=== PATIENT | female | born 1990 | race Asian ===

== ENCOUNTER 2019-03-07 16:44 | Emergency (ER) | payer BC ==
[2019-03-07] MEDS: LIDOCAINE 1% (MDV) 20 ML INJ SC (17:23)
== END 2019-03-07 18:54 | disposition home or self-care (01) ==
LOC: FTE 16:44
DX: O34.83 Maternal care for other abnormalities of pelvic organs, third trimester (principal); N75.0 Cyst of Bartholin's gland; Z3A.31 31 weeks gestation of pregnancy
CPT/HCPCS: 56420; 99283-25